=== PATIENT | male | born 1995 | race American Indian/Alaskan Native ===

== ENCOUNTER 2016-12-01 09:07 | Emergency (ER) | payer MEDICAID ==
[~2016-12-01] VITALS: Ht 167.6 cm; Wt 105.0 kg
[2016-12-01] MEDS ORDERED: NALOXONE 0.4 MG/ML, 1ML ONE ×2 (09:11→09:27)
[2016-12-01] MEDS ORDERED: SODIUM CHLORIDE FLUSH 10ML SYR IVF ONE (09:30)
[2016-12-01] MEDS ORDERED: SODIUM CHLORIDE 0.9% 1,000ML IVBOLUS ONE (09:30)
[2016-12-01] MEDS ORDERED: NALOXONE 0.4 MG/ML, 1ML IVPush PRN (10:00)
[2016-12-01 10:39] LABS: ASPARTATE AMINO TRANSFERASE 53 U/L (15-37); BLOOD UREA NITROGEN 18 mg/dL (7-18)
[2016-12-01 10:42] LABS: ACETAMINOPHEN < 2 mcg/mL (10-30)
[2016-12-01] MEDS ORDERED: ALPR-475 PO (11:32)
[2016-12-01] MEDS ORDERED: ZIPR60CA3 PO (11:32)
[2016-12-01 11:38] LABS: DAU SCREEN DISCLAIMER
[2016-12-01 12:45] VITALS: BP 120/76
== END 2016-12-01 12:48 | disposition home or self-care (01) ==
LOC: ED 12:30
DX: R41.82 Altered mental status, unspecified (principal); F13.10 Sedative, hypnotic or anxiolytic abuse, uncomplicated
CPT/HCPCS: 36415; 70450; 71010; 80053; 80307; 80329; 83605; 84145; 85025; 87040; 93005; 96361; 96374; 99285; J2310; J7030; G0480